=== PATIENT | female | born 1995 | race African-American/Black ===

== ENCOUNTER 2024-10-23 00:10 | Emergency (ER) | payer BC ==
[~2024-10-23] VITALS: Ht 175.3 cm; Wt 78.4 kg
[2024-10-23 00:23] VITALS: O2SAT 98
[2024-10-23 00:26] VITALS: BP 124/81; PULSE 86; RESP 18; TEMP 36.9; O2SAT 100
[2024-10-23] MEDS ORDERED: OFLO5DRO4 LEFT EAR (01:33)
== END 2024-10-23 01:46 | disposition home or self-care (01) ==
LOC: ER 00:10
DX: H60.92 Unspecified otitis externa, left ear (principal)
CPT/HCPCS: 99283